=== PATIENT | female | born 1970 ===

== ENCOUNTER 2016-11-16 14:16 | Emergency (ER) | payer OTHER ==
[~2016-11-16] VITALS: Ht 165.1 cm; Wt 64.0 kg
--- NOTE | 2016-11-16 14:29 | ED GI/GU/ABDOMINAL COMPLAINT ---
History of Present Illness General Chief Complaint: General Adult Stated Complaint: FOOD STUCK IN THROAT SINCE YESTERDAY Source: patient Exam Limitations: no limitations Vital Signs & Intake/Output Vital Signs & Intake/Output Vital Signs Date Time Temp Pulse Resp B/P B/P Pulse O2 O2 Flow FiO2 Mean Ox Delivery Rate 11/16 1420 97.9 73 18 114/77 100 Room Air Allergies Coded Allergies: No Known Allergies (11/16/16) Reconcile Medications Levothyroxine Sodium (Levoxyl) 75 MCG TABLET 1 TAB PO DAILY AC THYROID ( Reported) Triage Note: PT TO TRIAGE WITH C/O FOOD STUCK IN THROAT S/P DINNER LAST NIGHT (RICE AND VEGETABLES). PT ABLE TO SWALLOW LIQUIDS AND FOOD, DENIES DIFFICULTY BREATHING. VSS. Triage Nurses Notes Reviewed? yes ? N Is pt currently ? No Onset: Abrupt Duration: day(s): (1) Timing: multiple episodes today Quality/Severity: mild, moderate Location: throat Modifying Factors: Worsens With: other (SWALLOWING). Associated Symptoms: FB SENSATION BEHIND THYROID CARTILAGE HPI: 46 year old female presents with a feeling that something is in her throat everytime she swallows. She states she was eating rice and lentils with some vegetables last night. She is able to swallow liquids and saliva. She was even able to eat a peanut butter sandwich this morning but feels like there is something in her throat that she can feel everytime she swallows. No shortness of breath. Past History Travel History Traveled to [place] past 21 day No Medical History Any Pertinent Medical History? see below for history Endocrine: hypothyroidism Surgical History Surgical History: non-contributory Psychosocial History What is your primary language Bahamian Tobacco Use: Never used Family History Hx Contributory? No Review of Systems Review of Systems Constitutional: Denies: chills, fever. EENTM: Reports: throat pain. Respiratory: Denies: cough, short of breath, sputum production. Cardiovascular: Denies: chest pain, palpitations. GI: Denies: abdominal pain, nausea, vomiting. Genitourinary: Reports: no symptoms. Musculoskeletal: Reports: no symptoms. Skin: Reports: no symptoms. Neurological/Psychological: Reports: anxiety. Hematologic/Endocrine: Denies: bleeding. Immunologic/Allergic: Denies: splenectomy. All Other Systems: Reviewed and Negative Physical Exam Physical Exam General Appearance: well developed/nourished, alert, awake Head: atraumatic, normal appearance Eyes: Bilateral: normal appearance, PERRL, EOMI. Ears, Nose, Throat, Mouth: hearing grossly normal, moist mucous membrane Neck: normal inspection, supple, full range of motion, NO STRIDOR Respiratory: normal breath sounds, chest non-tender, no respiratory distress, NO WHEEZING Gastrointestinal: soft, non-tender Extremities: normal range of motion Neurologic/Psych: no motor/sensory deficits, awake, alert, oriented x 3 Skin: intact, normal color, warm/dry, cyanosis, diaphoresis, ecchymosis, jaundice, mottled, pallor, rash Core Measures ACS in differential dx? No Severe Sepsis Present: No Septic Shock Present: No Progress Differential Diagnosis: ESOPHAGEAL FB, TRACHEAL FB, THROAT IRRITATION Plan of Care: Orders Procedure Date/time Status COMPREHENSIVE METABOLIC PANEL 11/16 1434 Complete Laboratory Tests 11/16/16 1450: Anion Gap 11, Estimated GFR > 60, BUN/Creatinine Ratio 38.0 H, Glucose 95, Calcium 9.9, Total Bilirubin 0.9, AST 20, ALT 33, Alkaline Phosphatase 85, Total Protein 7.9, Albumin 4.6, Globulin 3.3, Albumin/Globulin Ratio 1.4 PATIENT TOLERATING PO WITHOUT DIFFICULTY. SHE STILL FEELS A PERSISTENT FB. IMAGING ORDERED. CT NONACUTE. WILL FOLLOW [facility]. (TATYANA GARRISON,CINDY) Diagnostic Imaging: Viewed by Me: CT Scan. Discussed w/RAD: CT Scan. Radiology Impression: PATIENT: GABRIEL LUDWIG PRESENT AGE: 46 PATIENT ACCOUNT NO: [id number] : 68 LOCATION: [facility] ORDERING PHYSICIAN: CINDY JOE MD SERVICE DATE: 11/16/16 EXAM TYPE: CAT - CT NECK W IV CONTRAST EXAMINATION: CT NECK WITH CONTRAST CLINICAL INFORMATION: Pain in throat since eating yesterday. Feels something stuck. Evaluate for foreign body. COMPARISON: None TECHNIQUE: Helical scanning was performed in the axial plane during bolus intravenous injection of 94 mL of Optiray 320, with multiplanar 2-D reconstructions. DLP: 517.46 mGy-cm FINDINGS: A tiny calcification in each tonsil is likely related to old infections. Otherwise, no suspicious foreign bodies are identified. There is no adenopathy. The thyroid gland is unremarkable. The visualized upper lung maciel are clear. There are minor degenerative changes in the cervical spine. IMPRESSION: No foreign body is identified. DICTATED BY: LYNETTE HO MD DATE/TIME DICTATED:11/16/161555 [employer] MACHINE SET UP MECHANIC:CIARA DATE/TIME TRANSCRIBED:11/16/161555 CONFIDENTIAL, DO NOT COPY WITHOUT APPROPRIATE AUTHORIZATION. <Electronically signed in Other Vendor System> SIGNED BY: LYNETTE HO MD 11/16/16 1613 Initial ED EKG: none Departure Departure Time of Disposition: 1617 Disposition: HOME OR SELF CARE Condition: Stable Clinical Impression Primary Impression: Foreign body sensation in throat Referrals: TIM GARRISON,MERI Cunningham Additional Instructions: Eat only soft foods. Follow-up with ENT specialist listed if you have persistent symptoms. Return as needed. Departure Forms: Customer Survey General Discharge Information
[2016-11-16] MEDS ORDERED: LEVOXYL75 MCG PO (15:11)
--- NOTE | 2016-11-16 16:13 | CT SCAN REPORT ---
EXAMINATION: CT NECK WITH CONTRAST CLINICAL INFORMATION: Pain in throat since eating yesterday. Feels something stuck. Evaluate for foreign body. COMPARISON: None TECHNIQUE: Helical scanning was performed in the axial plane during bolus intravenous injection of 94 mL of Optiray 320, with multiplanar 2-D reconstructions. DLP: 517.46 mGy-cm FINDINGS: A tiny calcification in each tonsil is likely related to old infections. Otherwise, no suspicious foreign bodies are identified. There is no adenopathy. The thyroid gland is unremarkable. The visualized upper lung maciel are clear. There are minor degenerative changes in the cervical spine. IMPRESSION: No foreign body is identified.
[2016-11-16 16:26] VITALS: BP 122/76
== END 2016-11-16 16:27 ==
LOC: ERH 14:16
DX: R09.89 Other specified symptoms and signs involving the circulatory and respiratory systems (principal)
CPT/HCPCS: 96360